=== PATIENT | male | born 1995 | race Asian ===

== ENCOUNTER 2020-08-26 19:21 | Emergency (ER) | payer OTHER ==
[~2020-08-26] VITALS: Ht 175.3 cm; Wt 86.9 kg
[2020-08-27] MEDS ORDERED: PANTOPRAZOLE 40MG TAB (PROTONIX) PO ONE (00:15)
[2020-08-27] MEDS ORDERED: GI COCKTAIL 50ML BTL(HYOSCYAMINE/MAALOX/LIDOCAINE VISCOUS)(1:3:1) PO ONE (00:15)
[2020-08-27] MEDS ORDERED: SUCRALFATE 1 GM TAB PO ONE (00:15)
[2020-08-27 00:37] VITALS: BP 136/89
[2020-08-27] MEDS ORDERED: OMEP40CA97 PO (01:01)
[2020-08-27] MEDS ORDERED: CARA1TAB6 PO (01:01)
== END 2020-08-27 01:28 | disposition home or self-care (01) ==
LOC: EDBD 19:21 → M ED 19:21
DX: R07.0 Pain in throat (principal)

== ENCOUNTER 2020-12-03 12:40 | Day surgery (SDC) | payer OTHER ==
[~2020-12-03] VITALS: Ht 177.8 cm; Wt 84.8 kg
[~2020-12-03 12:40] MED LIST: CARA1TAB6 PO; NS 1,000 ML IV ONE; OMEP40CA4 PO; fentaNYL 100 MCG/2 ML INJECTION (J3010) As Ordered ONE
[2020-12-03] MEDS ORDERED: LIDOCAINE 2% 100MG/5ML SDV (FOR ANES.) As Ordered ONE (14:36)
[2020-12-03] MEDS ORDERED: propofoL 200 MG/20 ML VIAL As Ordered ONE (14:45)
--- NOTE | 2020-12-03 14:54 | ROOR ---
Patient Name: Scott Houston Procedure Date: 12/03/2020 2:33 PM Date of : 1995 Age: 25 Room: [facility] Gender: Male Note Status: Finalized Procedure: Upper GI endoscopy Indications: Heartburn Providers: Javi Darden MD Referring MD: SERGIO HILL MD Requesting Provider: Medicines: Monitored Anesthesia Care Complications: No immediate complications. Procedure: Pre-Anesthesia Assessment: - The heart rate, respiratory rate, oxygen saturations, blood pressure, adequacy of pulmonary ventilation, and response to care were monitored throughout the procedure. The Endoscope was introduced through the mouth, and advanced to the second part of duodenum. The upper GI endoscopy was accomplished without difficulty. The patient tolerated the procedure well. Findings: The examined esophagus was normal. The Z-line was variable and was found 39 cm from the incisors. Biopsies were taken with a cold forceps for histology. The entire examined stomach was normal. Biopsies were taken with a cold forceps for Helicobacter pylori testing. The examined duodenum was normal. Impression: - Normal esophagus. Z-line variable, 39 cm from the incisors. Biopsied. - Normal stomach. Biopsied. - Normal examined duodenum. Recommendation: - Continue present medications. - Follow an antireflux regimen. - Telephone endoscopist for pathology results in 2 weeks. Procedure Code(s): --- Professional --- 21725, Esophagogastroduodenoscopy, flexible, transoral; with biopsy, single or multiple Diagnosis Code(s): --- Professional --- R12, Heartburn K22.8, Other specified diseases of esophagus CPT copyright 2019 [employer]. All rights reserved. The codes documented in this report are preliminary and upon spine specialist review may be revised to meet current compliance requirements. Javi Darden MD Javi Darden MD 12/03/2020 2:53:44 PM Electronically signed by Javi Darden MD Number of Addenda: 0 Note Initiated On: 12/03/2020 2:33 PM Estimated Blood Loss: Estimated blood loss: none.
[2020-12-03 15:15] VITALS: BP 113/61
== END 2020-12-03 15:22 | disposition home or self-care (01) ==
LOC: M OPP 12:40
PROVIDERS: ATTEND Internal Medicine Gastroenterology
DX: K22.8 Other specified diseases of esophagus (principal); K21.00 Gastro-esophageal reflux disease with esophagitis, without bleeding; R12 Heartburn; Z79.899 Other long term (current) drug therapy
CPT/HCPCS: 43239; 88305; J3010